=== PATIENT | female | born 1995 | race African-American/Black ===

== ENCOUNTER 2020-07-19 12:19 | Emergency (ER) | payer SELFPAY ==
[~2020-07-19] VITALS: Ht 157.5 cm; Wt 70.0 kg
[2020-07-19 12:25] VITALS: BP 126/78
[2020-07-19 13:09] LABS: BILIRUBIN,URINE SMALL (NEG); CLARITY,URINE CLEAR; COLOR,URINE YELLOW; NITRITE,URINE NEGATIVE (NEG); PROTEIN,URINE NEGATIVE (NEG-TRACE); UROBILINOGEN,URINE 0.2 mg/dL (0.2 mg/dL)
[2020-07-19 13:18] LABS: BACTERIA,URINE FEW /HPF (0-FEW); SQUAMOUS EPITHELIAL CELL,UR FEW /LPF
--- NOTE | 2020-07-19 13:58 | RAD ---
INDICATION: Reason: pelvic pain, vag bleeding / Spl. Instructions: / History: COMPARISON: March TECHNIQUE: Grayscale and color ultrasound images uterus and adnexa. Transvaginal images were obtained. FINDINGS: Uterus: 73 x 42 x 33 mm. Endometrial Stripe: 5 mm. Right Ovary: 46 x 32 x 20 mm. Left Ovary: 42 x 28 x 25 mm. Vascular flow identified to bilateral ovaries. Cystic lesion measuring 20 x 26 x 17 mm at the left ovary Free fluid is seen within the pelvis. Within the free fluid there is a circular structure identified with some cystic component and some internal echoes. This structure measures up to approximately 14 mm. There is some internal echoes within the free fluid IMPRESSION: * Vascular flow is seen to the ovaries. * Left ovarian cystic lesion is identified with some mild complexity along the wall. * Free fluid is seen within the pelvis. Within the pelvis there is a circular structure within echogenic rim and some layering internal echoes. This has a nonspecific appearance and could be secondary to some loculation within the free fluid but would correlate with hCG given that alternative causes such as ectopic cannot be excluded on ultrasound: There is some low-level internal echoes within the patient's free fluid which could be from debris or blood within. Electronically signed by: Evan Renee MD (07/19/2020 1:56 PM) [id number]
[2020-07-19 14:47] LABS: BASO % 1 % (0-3); EOS # 0.1 x10^3/uL (0.0-0.7); EOS % 1 % (0-3); HEMATOCRIT 40.6 % (36.0-47.0); HEMOGLOBIN 13.6 g/dL (12.0-15.5); LYMPH % 30 % (24-48); MEAN CORPUSCULAR HEMOGLOBIN 25 pg (25-35); MEAN CORPUSCULAR HGB CONC 33 g/dL (31-37); MEAN CORPUSCULAR VOLUME 76 fL (79-100); MONO # 0.3 x10^3/uL (0.0-1.1); MONO % 4 % (0-9); NEUT # 4.2 x10^3/uL (1.8-7.7); NEUT % 64 % (31-73); PLATELET COUNT 194 x10^3/uL (140-400); RED BLOOD COUNT 5.36 x10^6/uL (3.50-5.40); RED CELL DISTRIBUTION WIDTH 13.5 % (11.5-14.5); WHITE BLOOD COUNT 6.6 x10^3/uL (4.0-11.0)
[2020-07-19 15:00] LABS: CALCIUM 8.6 mg/dL (8.5-10.1); CREATININE 0.9 mg/dL (0.6-1.0); GFR 92.3; POTASSIUM 3.9 mmol/L (3.5-5.1)
[2020-07-19 15:07] LABS: TOTAL BILIRUBIN 0.4 mg/dL (0.2-1.0); TOTAL PROTEIN 7.9 g/dL (6.4-8.2)
--- NOTE | 2020-07-19 15:34 | PHYS DOC ---
Past Medical History Past Medical History: Other Additional Past Medical Histor: PID (ANGE VAZQUEZ APRN) Past Surgical History: No Surgical History (ANGE VAZQUEZ APRN) Smoking Status: Never Smoker Alcohol Use: None Drug Use: None (ANGE VAZQUEZ APRN) General Adult EDM: Chief Complaint: ABDOMINAL PAIN HPI: HPI: Patient is a 24 year old female who presents to the ED today complaining of 4 out of 10 bilateral pelvic pain, symptoms began yesterday. She is currently on her cycle. Patient denies bleeding more than normal. Denies any nausea vomiting. She states the pain is worse when she was having a bowel movement. Denies being constipated. Denies anything specifically alleviating the pain. Denies any chance she is . Describes the pain as pressure-like. (ANGE VAZQUEZ APRN) Review of Systems: Review of Systems: Constitutional: Denies fever or chills. [] Eyes: Denies change in visual acuity. [] HENT: Denies nasal congestion or sore throat. [] Respiratory: Denies cough or shortness of breath. [] Cardiovascular: Denies chest pain or edema. [] GI: Reports pelvic pain. Denies nausea, vomiting, bloody stools or diarrhea. [] : Denies dysuria. [] Musculoskeletal: Denies back pain or joint pain. [] Integument: Denies rash. [] Neurologic: Denies headache, focal weakness or sensory changes. [] [] Psychiatric: Denies depression or anxiety. [] (ANGE VAZQUEZ APRN) Heart Score: Risk Factors: Risk Factors: DM, Current or recent (<one month) smoker, HTN, HLP, family history of CAD, obesity. Risk Scores: Score 0 - 3: 2.5% MACE over next 6 weeks - Discharge Home Score 4 - 6: 20.3% MACE over next 6 weeks - Admit for Clinical Observation Score 7 - 10: 72.7% MACE over next 6 weeks - Early Invasive Strategies (ANGE VAZQUEZ APRN) Allergies: Allergies: Allergies Coded Allergies Type Severity Reaction Last Updated Verified No Known Drug Allergies 04/02/15 No (ANGE VAZQUEZ APRN) Physical Exam: PE: Constitutional: Well developed, well nourished, no acute distress, non-toxic appearance. [] HENT: Normocephalic, atraumatic, bilateral external ears normal, oropharynx moist, no oral exudates, nose normal. [] Eyes: PERRLA, EOMI, conjunctiva normal, no discharge. [] Neck: Normal range of motion, no tenderness, supple, no stridor. [] Cardiovascular:Heart rate regular rhythm, no murmur [] Lungs & Thorax: Bilateral breath sounds clear to auscultation [] Abdomen: Bowel sounds normal, soft, no tenderness, no masses, no pulsatile masses. [] Pelvic exam External pelvic appears normal, cervix is visualized, closed, no CMT, trace amount of bright red blood in the vaginal vault Skin: Warm, dry, no erythema, no rash. [] Back: No tenderness, no CVA tenderness. [] Extremities: No tenderness, no cyanosis, no clubbing, ROM intact, no edema. [] Neurologic: Alert and oriented X 3, normal motor function, normal sensory function, no focal deficits noted. [] Psychologic: Affect normal, judgement normal, mood normal. [] (ANGE VAZQUEZ APRN) Current Patient Data: Labs: Laboratory Tests Test 07/19/20 12:28 07/19/20 12:44 07/19/20 14:34 Urine Collection Type Unknown Urine Color Yellow Urine Clarity Clear Urine pH 5.0 (<5.0-8.0) Urine Specific [place] >=1.030 (1.000-1.030) Urine Protein Negative mg/dL (NEG-TRACE) Urine Glucose (UA) Negative mg/dL (NEG) Urine Ketones (Stick) Negative mg/dL (NEG) Urine Blood Large (NEG) Urine Nitrite Negative (NEG) Urine Bilirubin Small (NEG) Urine Urobilinogen Dipstick 0.2 mg/dL (0.2 mg/dL) Urine Leukocyte Esterase Negative (NEG) Urine RBC 3-5 /HPF (0-2) Urine WBC 1-4 /HPF (0-4) Urine Squamous Epithelial Cells Few /LPF Urine Bacteria Few /HPF (0-FEW) POC Urine HCG, Qualitative Hcg negative (Negative) White Blood Count 6.6 x10^3/uL (4.0-11.0) Red Blood Count 5.36 x10^6/uL (3.50-5.40) Hemoglobin 13.6 g/dL (12.0-15.5) Hematocrit 40.6 % (36.0-47.0) Mean Corpuscular Volume 76 fL (79-100) L Mean Corpuscular Hemoglobin 25 pg (25-35) Mean Corpuscular Hemoglobin Concent 33 g/dL (31-37) Red Cell Distribution Width 13.5 % (11.5-14.5) Platelet Count 194 x10^3/uL (140-400) Neutrophils (%) (Auto) 64 % (31-73) Lymphocytes (%) (Auto) 30 % (24-48) Monocytes (%) (Auto) 4 % (0-9) Eosinophils (%) (Auto) 1 % (0-3) Basophils (%) (Auto) 1 % (0-3) Neutrophils # (Auto) 4.2 x10^3/uL (1.8-7.7) Lymphocytes # (Auto) 2.0 x10^3/uL (1.0-4.8) Monocytes # (Auto) 0.3 x10^3/uL (0.0-1.1) Eosinophils # (Auto) 0.1 x10^3/uL (0.0-0.7) Basophils # (Auto) 0.0 x10^3/uL (0.0-0.2) Maternal Serum HCG Beta Subunit < 1 mIU/mL (0-5) Sodium Level 139 mmol/L (136-145) Potassium Level 3.9 mmol/L (3.5-5.1) Chloride Level 105 mmol/L (98-107) Carbon Dioxide Level 25 mmol/L (21-32) Anion Gap 9 (6-14) Blood Urea Nitrogen 13 mg/dL (7-20) Creatinine 0.9 mg/dL (0.6-1.0) Estimated GFR (Cockcroft-Gault) 92.3 BUN/Creatinine Ratio 14 (6-20) Glucose Level 88 mg/dL (70-99) Calcium Level 8.6 mg/dL (8.5-10.1) Total Bilirubin 0.4 mg/dL (0.2-1.0) Aspartate Amino Transferase (AST) 21 U/L (15-37) Alanine Aminotransferase (ALT) 28 U/L (14-59) Alkaline Phosphatase 66 U/L (46-116) Total Protein 7.9 g/dL (6.4-8.2) Albumin 4.0 g/dL (3.4-5.0) Albumin/Globulin Ratio 1.0 (1.0-1.7) Laboratory Tests 07/19/20 14:34 Laboratory Tests 07/19/20 14:34 Microbiology 07/19/20 Wet Prep - Final, Complete Vital Signs: Vital Signs Date Time Temp Pulse Resp B/P (MAP) Pulse Ox O2 Delivery O2 Flow Rate FiO2 07/19/20 12:25 98.0 70 18 126/78 (94) 98 Room Air 98.0 (ANGE VAZQUEZ APRN) EKG: EKG: [] (ANGE VAZQUEZ APRN) Radiology/Procedures: Radiology/Procedures: []PROCEDURE: PELVIS W/TV INDICATION: Reason: pelvic pain, vag bleeding / Spl. Instructions: / History: COMPARISON: March TECHNIQUE: Grayscale and color ultrasound images uterus and adnexa. Transvaginal images were obtained. FINDINGS: Uterus: 73 x 42 x 33 mm. Endometrial Stripe: 5 mm. Right Ovary: 46 x 32 x 20 mm. Left Ovary: 42 x 28 x 25 mm. Vascular flow identified to bilateral ovaries. Cystic lesion measuring 20 x 26 x 17 mm at the left ovary Free fluid is seen within the pelvis. Within the free fluid there is a circular structure identified with some cystic component and some internal echoes. This structure measures up to approximately 14 mm. There is some internal echoes within the free fluid IMPRESSION: * Vascular flow is seen to the ovaries. * Left ovarian cystic lesion is identified with some mild complexity along the wall. * Free fluid is seen within the pelvis. Within the pelvis there is a circular structure within echogenic rim and some layering internal echoes. This has a nonspecific appearance and could be secondary to some loculation within the free fluid but would correlate with hCG given that alternative causes such as ectopic cannot be excluded on ultrasound: There is some low-level internal echoes within the patient's free fluid which could be from debris or blood within. Electronically signed by: Amilcar Leon MD (07/19/2020 1:56 PM) [id number] DICTATED and SIGNED BY: AMILCAR LEON MD DATE: 07/19/20 1356 (ANGE VAZQUEZ APRN) Course & Med Decision Making: Course & Med Decision Making Pertinent Labs and Imaging studies reviewed. (See chart for details) This is a 24-year-old female patient presenting to the ED today with pelvic pain bilaterally, symptoms began yesterday. Negative urine hCG, beta-hCG less than 1, urine analysis negative for infection, wet prep is negative. Pelvic ultrasound mention left ovarian cyst and possibility of ectopic due to free fluid in the pelvic and cul-de-sac. Considering beta-hCG of less than 1, patient is not . She was provided and OBGYN for follow-up. Ibuprofen or Tylenol for pain. (ANGE VAZQUEZ APRN) Dragon Disclaimer: Dragon Disclaimer: This electronic medical record was generated, in whole or in part, using a voice recognition dictation system. (ANGE VAZQUEZ APRN) Departure Departure Impression: Primary Impression: Left ovarian cyst Additional Impressions: Pelvic pain Menstruation Disposition: , SELF-CARE Condition: STABLE Referrals: NO PCP (PCP) RAFAEL NEWELL Jr, MD follow up in 2-6 weeks Patient Instructions: Ovarian Cyst, [id number] Additional Instructions: You have left ovarian cyst. We recommend you follow-up with an TILE AND MOTTLE SUPERVISOR. You can take Tylenol or Motrin as needed for pain. Come back to the ED at any point symptoms worsen. Consider using a heating pad on your abdomen Justicifation of Admission Dx: Justifications for Admission: Justification of Admission Dx: N/A (ANGE VAZQUEZ APRN) Attending Signature Attending Signature I have reviewed the PA/AUTO BODY REPAIR TEACHER's note and plan of care. I was available for consultation as needed at all times during the patient's visit in the emergency department. I agree with the clinical impression, plan and disposition. (VITO LIVE DO) ANGE VAZQUEZ APRN Jul 19, 2020 15:34 VITO LIVE DO Jul 20, 2020 09:39
[2020-07-20 20:08] LABS: GC PROBE Negative (Negative)
== END 2020-07-19 15:51 | disposition home or self-care (01) ==
LOC: ER 12:19
DX: N83.292 Other ovarian cyst, left side (principal); R10.2 Pelvic and perineal pain
CPT/HCPCS: 36415; 76830; 76856; 80053; 81001; 81025; 84702; 85025; 87491; 87591; 99284; Q0111